=== PATIENT | female | born 1975 ===

== ENCOUNTER 2017-09-28 06:34 | Emergency (ER) | payer SELFPAY ==
[2017-09-28 06:50] VITALS: BP 174/103; PULSE 79; RESP 18; TEMP 99.1; O2SAT 97
--- NOTE | 2017-09-28 07:31 | C.PDOC ---
History Of Present Illness 41 year old female presents to the ED c/o left foot pain and rash. Patient reports she got a tattoo done 7 weeks ago and since has been noticing bumps on her tattoo area. Patient also reports pain and burning to the area when touching. Patient has been using hydrocortisone and bacitracin. Patient denies fever, chills, nausea, vomit, weakness, numbness. Time Seen by Provider: 09/28/17 07:06 Chief Complaint (Nursing): Abnormal Skin Integrity History Per: Patient History/Exam Limitations: no limitations Onset/Duration Of Symptoms: Days Current Symptoms Are (Timing): Still Present Location Of Injury: Left: Foot Quality Of Symptoms: Painful, Itching Recent travel outside of the [place]: No Additional History Per: Patient Past Medical History Reviewed: Historical Data, Nursing Documentation, Vital Signs Vital Signs: Last Vital Signs Temp 99.1 F 09/28/17 06:47 Pulse 79 09/28/17 06:47 Resp 18 09/28/17 06:47 BP 174/103 H 09/28/17 06:47 Pulse Ox 97 09/28/17 07:53 - Medical History PMH: HTN Surgical History: Appendectomy Family History: States: Unknown Family Hx - Social History Hx Alcohol Use: No Hx Substance Use: No - Immunization History Hx Tetanus Toxoid Vaccination: No Hx Influenza Vaccination: No Hx Pneumococcal Vaccination: No Review Of Systems Constitutional: Negative for: Fever, Chills Gastrointestinal: Negative for: Nausea, Vomiting Musculoskeletal: Positive for: Foot Pain Skin: Positive for: Rash Neurological: Negative for: Weakness, Numbness Physical Exam - Physical Exam Appears: Non-toxic, No Acute Distress Skin: Warm, Dry, Rash (mild papular rash to left dorsal foot) Head: Atraumatic, Normacephalic Eye(s): bilateral: Normal Inspection Oral Mucosa: Moist Neck: Normal ROM, Supple Chest: Symmetrical Cardiovascular: Rhythm Regular Respiratory: Normal Breath Sounds, No Rales, No Rhonchi, No Wheezing Extremity: Normal ROM, Tenderness (left dorsal foot), Capillary Refill (< 2 seconds) Pulses: Left Dorsalis Pedis: Normal, Right Dorsalis Pedis: Normal Neurological/Psych: Oriented x3, Normal Speech Gait: Steady ED Course And Treatment O2 Sat by Pulse Oximetry: 97 (On RA) Pulse Ox Interpretation: Normal Medical Decision Making Medical Decision Making: Impression: allergic reaction vs early cellulitis Plan: * Keflex 500 mg PO * Prednisone 60 mg PO Disposition Counseled Patient/Family Regarding: Studies Performed, Diagnosis, Need For Followup, Rx Given - Disposition Referrals: Clinic,Med Surg [Primary Care Provider] - Disposition: HOME/ ROUTINE Disposition Time: 07:30 Condition: STABLE Additional Instructions: follow up with medical clinic in 2 days call to make an appointment apply bacitracin to wound take medication as prescribed return to ER if symptoms worsens or progress Prescriptions: Cephalexin [Keflex] 500 mg PO QID #40 capsule predniSONE [predniSONE Tab] 50 mg PO DAILY #4 tab Instructions: Skin Rash (DC) Forms: [facility] (Eth[place]ian), General Discharge Instructions - Clinical Impression Clinical Impression: Rash - Scribe Statement The provider has reviewed the documentation as recorded by the Scribe Dylan Langford All medical record entries made by the Scribe were at my direction and personally dictated by me. I have reviewed the chart and agree that the record accurately reflects my personal performance of the history, physical exam, medical decision making, and the department course for this patient. I have also personally directed, reviewed, and agree with the discharge instructions and disposition.
--- NOTE | 2017-09-28 07:36 | C.PDOC ---
History Of Present Illness 41 year old female presents to the ED c/o left foot pain and rash. Patient reports she got a tattoo done 7 weeks ago and since has been noticing bumps on her tattoo area. Patient also reports pain and burning to the area when touching. Patient has been using hydrocortisone and bacitracin. Patient denies fever, chills, nausea, vomit, weakness, numbness. Time Seen by Provider: 09/28/17 07:06 Chief Complaint (Nursing): Abnormal Skin Integrity History Per: Patient History/Exam Limitations: no limitations Onset/Duration Of Symptoms: Days Current Symptoms Are (Timing): Still Present Location Of Injury: Left: Foot Quality Of Symptoms: Painful, Itching Recent travel outside of the [place]: No Additional History Per: Patient Past Medical History Reviewed: Historical Data, Nursing Documentation, Vital Signs Vital Signs: Last Vital Signs Temp 99.1 F 09/28/17 06:47 Pulse 79 09/28/17 06:47 Resp 18 09/28/17 06:47 BP 174/103 H 09/28/17 06:47 Pulse Ox 97 09/28/17 06:47 - Medical History PMH: HTN Surgical History: Appendectomy Family History: States: Unknown Family Hx - Social History Hx Alcohol Use: No Hx Substance Use: No - Immunization History Hx Tetanus Toxoid Vaccination: No Hx Influenza Vaccination: No Hx Pneumococcal Vaccination: No Review Of Systems Constitutional: Negative for: Fever, Chills Gastrointestinal: Negative for: Nausea, Vomiting Musculoskeletal: Positive for: Foot Pain Skin: Positive for: Rash Neurological: Negative for: Weakness, Numbness Physical Exam - Physical Exam Appears: Non-toxic, No Acute Distress Skin: Warm, Dry, Rash (mild papular rash to left dorsal foot) Head: Atraumatic, Normacephalic Eye(s): bilateral: Normal Inspection Oral Mucosa: Moist Neck: Normal ROM, Supple Chest: Symmetrical Cardiovascular: Rhythm Regular Respiratory: Normal Breath Sounds, No Rales, No Rhonchi, No Wheezing Extremity: Normal ROM, Tenderness (left dorsal foot), Capillary Refill (< 2 seconds), No Swelling Pulses: Left Dorsalis Pedis: Normal, Right Dorsalis Pedis: Normal Neurological/Psych: Oriented x3, Normal Speech Gait: Steady ED Course And Treatment O2 Sat by Pulse Oximetry: 97 (ON RA) Pulse Ox Interpretation: Normal Medical Decision Making Medical Decision Making: Impression: allergic reaction vs early cellulitis Plan: * Keflex 500 mg po * Prednisone 60 mg PO Disposition - Disposition Referrals: Clinic,Med Surg [Primary Care Provider] - Forms: [facility] (Kiswahili) - Scribe Statement The provider has reviewed the documentation as recorded by the Scribe Dylan Langford All medical record entries made by the Scribe were at my direction and personally dictated by me. I have reviewed the chart and agree that the record accurately reflects my personal performance of the history, physical exam, medical decision making, and the department course for this patient. I have also personally directed, reviewed, and agree with the discharge instructions and disposition.
== END 2017-09-28 07:42 | disposition home or self-care (01) ==
LOC: SUPCPDRO 06:34 → C.ER 06:34
DX: R21 Rash and other nonspecific skin eruption (principal)